=== PATIENT | male | born 1975 | race Caucasian/White ===

== ENCOUNTER 2024-10-14 18:54 | Emergency (ER) | payer SELFPAY ==
[2024-10-14 18:55] VITALS: BP 138/85
[2024-10-14] MEDS: DELTASONE 50 MG PO (21:18)
[2024-10-14] MEDS: KEFLEX 500 MG PO (21:18)
--- NOTE | 2024-10-14 22:43 | ED.GENMED ---
History of Present Illness
General
Chief Complaint: Skin Problem
Source: patient and spouse ( at bedside)
Exam Limitations: none
Time Seen by Provider: 10/14/24 20:03
Nursing documentation reviewed up to this point in time: agreed with
History of Present Illness
History of Present Illness:
Patient is a 49-year-old male who presents to the emergency department for evaluation of rash on his bilateral arms. Patient he works for same company who was performing a job on Saturday when he believes he came into contact with poison oak. He
states that he began noticing some redness and swelling of his bilateral arms yesterday however symptoms significantly worsened today prompting visit to the emergency department. Patient reports significant swelling and irritation including
pruritus of his bilateral forearms. He noticed significant redness and feels that his skin is 'tight '. He reports large blisters on his bilateral forearms. Patient states he feels generally rundown other denies any fever, nausea/vomiting.
Patient has been treating rash topically with calamine lotion.
He does have history of poison oak in the past however has never had it this severe.
Phy Exam
Physical Exam
Physical Exam:
Vitals: Patient's vital signs are stable. Afebrile
General: Patient is well appearing, no acute distress. Nontoxic appearing
Skin: Erythema and edema of bilateral forearms L >R with vesicular rash in linear distribution with scattered large bullae. Small area of erythema on the right lateral chest wall with few vesicles. No lymphangitic streaking. Some mild warmth of
skin. No involvement of lower extremities, abdomen, face.
Head: Normocephalic, atraumatic
Eyes: Sclera nonicteric.
Throat: Protecting airway
Neck: Normal ROM, no cervical spine tenderness, no meningismus
Cardiac: Regular rate and rhythm, no murmurs.
Pulm: Normal respiratory effort, no wheezes, rales, rhonchi heard on exam
.
Abdomen: No abdominal tenderness.
Extremities: Swelling and erythema of bilateral forearms with vesicular rash as described above. 2+ palpable radial pulses bilaterally with normal sensation. No joint effusions.
Neuro: AAOx3. CN II-XII intact. No focal neurologic deficits.
Psychiatric: Normal affect.
Course
Orders/Labs/Results
Orders:
Orders
10/14/24 20:58
Prednisone [Deltasone] 50 mg PO NOW STA
10/14/24 21:08
Cephalexin Monohydrate [Keflex] 500 mg PO NOW STA
Vital Signs
Initial and Last Documented VS:
Initial Vital Signs
Temp Pulse Resp BP Pulse Ox
98.4 F 80 16 138/85 98
10/14/24 18:55 10/14/24 18:55 10/14/24 18:55 10/14/24 18:55 10/14/24 18:55
Last Documented Vital Signs
Temp Pulse Resp BP Pulse Ox
98.4 F 80 16 138/85 98
10/14/24 18:55 10/14/24 18:55 10/14/24 18:55 10/14/24 18:55 10/14/24 22:44
MDM/Problems Addressed
Differential Diagnosis Includes:
Not limited to: Contact dermatitis secondary to poison tina/poison oak, cellulitis, atopic dermatitis, urticaria, etc.
MDM/Problems Addressed:
49-year-old male presenting with a progressively worsening rash on bilateral upper extremities after recent exposure to suspected poison oak. The patient denies systemic symptoms such as fevers, chills, or vomiting. He has been using calamine lotion
at home, but the rash and swelling are worsening. Examination reveals significant erythema and edema of bilateral forearms, left worse than right, with a vesicular rash in a linear distribution and large bullae containing serous fluid. There is some
mild warmth of skin however no evidence of lymphangitic streaking. There is a small area of vesicular rash on the right lateral chest wall. No rash is observed on the lower extremities or face.
Overall impression is likely contact dermatitis secondary to poison oak, with no evidence of superimposed bacterial infection or cellulitis.
Plan: Start prednisone taper and advise on supportive care measures, including the use of cool dressings and calamine lotion. While overall low suspicion for current infectious process will send prescription for Keflex to pharmacy to tx possible
early cellulitis.
Feel stable for discharge home. Discussed with the patient and his the importance of following up with primary care and strict return precautions. Patient comfortable with plan.
Chronic conditions affecting care:
N/A
Acute Exacerbation and/or Progression of Chronic Illness:
N/A
*Pulse Oximetry
SaO2: 98
Oxygen Mode of Delivery: Room air
Patient hypoxic: no
*EKG
Interpreted by ED Provider?: NA
*Courtesy Driver Interpretation
Rate: Courtesy Driver- N/A
*Critical Care Note
Total Time (30-74mins, 75-104mins- exclusive of procedures): Not Applicable
Patient Management
Escalation/DeEscalation of care consider admission/obs:
Admit not indicated
ED Attending Note
-
Portions of this chart may have been created with voice recognition software.� Occasional wrong word or��sound alike� substitutions may have occurred due to the inherent limitations of voice recognition software.
Discharge Plan
Departure
Patient Disposition: Home (Routine Discharge)
Date of Disposition: 10/14/24
Time of Disposition: 20:51
Patient with high blood pressure during this ER visit?: Yes
Condition: Good
Covid-19: Not Applicable
Discharge Problem:
Contact dermatitis due to poison oak
Instructions: Poison [place], Poison [place], Poison [place] [facility], BLOOD PRESSURE
Prescriptions:
New
prednisone 10 mg Tablet
See Rx Instructions .ROUTE .COMPLEX Qty: 45 0RF
Rx Instructions:
Take By Mouth:
50 mg daily x3 days, 40 mg daily x3 days,
30 mg daily x3 days, 20 mg daily x3 days,
10 mg daily x3 days
cephalexin 500 mg capsule
500 mg PO QID 5 Days Qty: 20 0RF
Referrals:
NONE,* [Family Provider, Internal Medicine]
Activity Restrictions/Additional Instructions:
RETURN TO THE EMERGENCY DEPARTMENT WITH ANY SIGNIFICANT WORSENING IN SWELLING, PAIN OF THE ARMS, ANY SIGNS OF INFECTION INCLUDING FEVER, CHILLS, SIGNIFICANT WARMTH OR TENDERNESS OF ARMS, CHEST PAIN, SHORTNESS OF BREATH, WORSENING IN CURRENT
SYMPTOMS, OR ANY OTHER CONCERNS
- A prescription for steroid taper course has been sent to your pharmacy. Please fully complete this course
- You can continue to apply topical calamine lotion or use Burow's solution at home. You can apply cool, wet compresses and keep affected areas covered.
- It is important that you maintain excellent hygiene wash your hands thoroughly, wash any sheets, bedding, clothing that have been in contact with rash.
-Please monitor very closely for any signs of skin infection and return promptly if you notice any concerning symptoms.
-Follow-up with primary care for further evaluation/management and to ensure that symptoms are improving
Monitor your symptoms closely and return to the emergency department with any acute worsening/new symptoms or any other concern
Interventions
Interventions:
*Risk Screen - Suicide Last Done: 10/14/24 20:16
*General Assessment Last Done: 10/14/24 20:16
*Neglect/Abuse Screening Last Done: 10/14/24 20:16
*ED- Fall Risk Assessment Last Done: 10/14/24 20:16
*Nursing Disposition Last Done: 10/14/24 21:29
ED-Skin Assessment Last Done: 10/14/24 20:17
Discharge Date and Time
Discharge Date/Time: 10/14/24 21:29
Print Language: BULGARIAN
== END 2024-10-14 21:29 | disposition home or self-care (01) ==
LOC: EMR 18:54
PROVIDERS: EMERGENCY PHYSICIAN Emergency Medicine
DX: L23.7 Allergic contact dermatitis due to plants, except food (principal)
CPT/HCPCS: 99282